=== PATIENT | female | born 1955 | race Caucasian/White ===

== ENCOUNTER 2021-05-07 00:20 | Emergency (ER) | payer OTHER ==
[~2021-05-07] VITALS: Ht 154.9 cm; Wt 86.2 kg
[2021-05-07 00:20] VITALS: BP 135/95
--- NOTE | 2021-05-07 00:20 | NUR ---
AYANA ANTUNEZP TAKEN TO CHAIR A
--- NOTE | 2021-05-07 00:30 | NUR ---
PATIENT [facility] DEPT. PATIENT EXAMINED BY DR. BRAXTON. PATIENT MEDICALLY CLEARED AND RELEASED IN CUSTODY IN STABLE CONDITION. ORIGINAL PRE-BOOK FORM GIVEN TO [employer], #[id number].
== END 2021-05-07 00:30 ==
LOC: MED 00:20
DX: Z02.89 Encounter for other administrative examinations (principal); V89.2XXA Person injured in unspecified motor-vehicle accident, traffic, initial encounter; Y93.89 Activity, other specified; Y92.89 Other specified places as the place of occurrence of the external cause; Y99.8 Other external cause status
CPT/HCPCS: 99283